=== PATIENT | male | born 1950 | race Caucasian/White ===

== ENCOUNTER 2021-06-06 13:45 | Emergency (ER) | payer MEDICARE | END 2021-06-06 14:55 | disposition home or self-care (01) | LOC: MADERS 13:45 | DX: S43.402A Unspecified sprain of left shoulder joint, initial encounter (principal); B20 Human immunodeficiency virus [HIV] disease; W01.0XXA Fall on same level from slipping, tripping and stumbling without subsequent striking against object, initial encounter ==

== ENCOUNTER 2023-10-10 17:36 | Emergency (ER) | payer MEDICARE ==
[~2023-10-10 17:36] MED LIST: Iopamidol 370 76% 100 ML VIAL ONE
[2023-10-10 18:22] LABS: Bilirubin Small (Negative); Blood, Urine Negative (Negative); Clarity Clear (Clear); Glucose, Urine (Dipstick) Negative (Negative); Ketone, Urine Negative (Negative); Leukocyte Negative (Negative); Nitrite Negative (Negative); Protein, Urine (Dipstick) 100 mg/dL (Neg-Trace); Urobilinogen 0.2 mg/dL (Less than 2); pH, Urine 5.5 (5.0-9.0)
[2023-10-10] MEDS ORDERED: Ondansetron PF 4 MG/2 ML Vial ONE (18:25)
[2023-10-10] MEDS ORDERED: Sodium Chloride 0.9% 1,000 ML ONE (18:25)
[2023-10-10] MEDS ORDERED: methylPREDNISolone Sod Succ/PF 125 MG/2 ML VIAL ONE (18:25)
[2023-10-10 18:28] LABS: Specific Gravity, Urine 1.032 (1.002-1.036)
[2023-10-10 18:33] LABS: Bacteria/HPF Rare-Few HPF (None Seen); CAUTI Indications for Culture Dysuria,urgency,freq; Mucous/LPF 2+ LPF (<2+); RBC/HPF None Seen HPF (0-3); Squamous Epithelial 0-3 HPF (0-3); Urine Culture Reflex No No
[2023-10-10 18:34] LABS: #Basophils 0.1 thou/uL (0.0-0.2); #Eosinphils 0.1 thou/uL (0.0-0.7); #Lymphocytes 0.8 thou/uL (1.20-3.40); #Monocytes 0.8 thou/uL (0.11-0.59); #Neutrophils 8.2 thou/uL (1.40-6.50); %Basophils 0.7 % (0.0-1.0); %Eosinophils 0.7 % (0.0-10.0); %Lymphocytes 8.2 % (21.0-51.0); %Monocytes 7.8 % (0.0-10.0); %Neutrophils 82.6 % (42.0-75.0); Hemoglobin 17.2 g/dL (14.0-18.0); Mean Corpuscular HGB CONC 29.8 g/dL (32.0-36.0); Mean Corpuscular Hemoglobin 27.4 pg (27.0-31.0); Mean Corpuscular Volume 92.1 fl (78.0-98.0); Platelet Count 134 10x3/uL (130-400); RBC Distribution Width 14.7 % (11.5-14.5); White Blood Cell (WBC) Count 9.9 10x3/uL (4.8-10.8)
[2023-10-10 18:41] LABS: ALT (SGPT) 18 U/L (8-55); AST (SGOT) 18 U/L (5-34); Albumin 4.4 g/dL (3.4-4.8); Alkaline Phosphatase 55 U/L (40-110); Anion Gap 17 mmol/L (10-20); BUN (Urea Nitrogen) 25 mg/dL (8.4-25.7); Bilirubin, Total 0.5 mg/dL (0.2-1.2); Calc. Creatinine Clearance 0 mL/min (70-130); Carbon Dioxide 22 mmol/L (23-31); Chloride 108 mmol/L (98-107); Estimated GFR 43; Globulin 2.7 g/dL (2.4-3.5); Glucose 114 mg/dL (83-110); Potassium 4.4 mmol/L (3.5-5.1); Protein, Total 7.1 g/dL (5.8-8.1); Sodium 143 mmol/L (136-145); Troponin I 0.016 ng/mL (< 0.028)
== END 2023-10-10 19:50 | disposition left against medical advice (07) ==
LOC: MADERS 17:36
DX: T63.441A Toxic effect of venom of bees, accidental (unintentional), initial encounter (principal); K56.609 Unspecified intestinal obstruction, unspecified as to partial versus complete obstruction; B20 Human immunodeficiency virus [HIV] disease; Z79.899 Other long term (current) drug therapy
CPT/HCPCS: 74177; 80053; 81001; 83605; 84484; 85025; 93005; 96361; 96374; 96375; 99284; J2405; J2930; J7050; Q9967

== ENCOUNTER 2023-10-14 16:17 | Emergency (ER) | payer MEDICARE ==
[2023-10-14 17:12] LABS: Bilirubin Negative (Negative); Blood, Urine Negative (Negative); Glucose, Urine (Dipstick) Negative (Negative); Ketone, Urine Negative (Negative); Leukocyte Negative (Negative); Nitrite Negative (Negative); Protein, Urine (Dipstick) Negative (Neg-Trace); Urobilinogen 0.2 mg/dL (Less than 2); pH, Urine 5.5 (5.0-9.0)
[2023-10-14 17:17] LABS: Clarity Hazy (Clear)
[2023-10-14 17:19] LABS: CAUTI Indications for Culture < 2yrs of age; RBC/HPF 0-3 HPF (0-3); Squamous Epithelial 0-3 HPF (0-3); WBC/HPF 0-3 HPF (0-3)
[2023-10-14 17:20] LABS: Bacteria/HPF Rare-Few HPF (None Seen)
[2023-10-14 17:22] LABS: Urine Culture Reflex Yes Yes
[2023-10-14] MEDS ORDERED: Lidocaine 4% Patch ONE (17:24)
[2023-10-14] MEDS ORDERED: Acetaminophen/Codeine 30-300mg Tablet ONE (17:44)
== END 2023-10-14 17:58 | disposition home or self-care (01) ==
LOC: MADERS 16:17
DX: M62.830 Muscle spasm of back (principal)
CPT/HCPCS: 81001; 87086; 99283

== ENCOUNTER 2024-02-07 09:29 | Emergency (ER) | payer MEDICARE ==
[2024-02-07] MEDS ORDERED: Lidocaine 1% PF 5 ML VIAL ONE (09:41)
[2024-02-07] MEDS ORDERED: Bacitracin 1 PK ONE (10:20)
== END 2024-02-07 10:33 | disposition home or self-care (01) ==
LOC: MADERS 09:29
DX: S61.213A Laceration without foreign body of left middle finger without damage to nail, initial encounter (principal); W23.0XXA Caught, crushed, jammed, or pinched between moving objects, initial encounter
CPT/HCPCS: 12001; 99282

== ENCOUNTER 2024-02-14 09:02 | Emergency (ER) | payer MEDICARE | END 2024-02-14 09:51 | disposition home or self-care (01) | LOC: MADERS 09:02 | DX: S61.211D Laceration without foreign body of left index finger without damage to nail, subsequent encounter (principal); W26.9XXD Contact with unspecified sharp object(s), subsequent encounter ==

== ENCOUNTER 2024-08-19 21:22 | Emergency (ER) | payer MEDICARE | END 2024-08-19 21:55 | disposition home or self-care (01) | LOC: MADERS 21:22 | DX: J01.90 Acute sinusitis, unspecified (principal); B20 Human immunodeficiency virus [HIV] disease; Z94.4 Liver transplant status; Z79.899 Other long term (current) drug therapy | CPT/HCPCS: 99283 ==